=== PATIENT | female | born 1995 | race Caucasian/White ===

== ENCOUNTER → 2017-05-17 | Outpatient (CLI) | payer BC | LOC: PLD 11:02 → LAB SHORT 11:02 | DX: D48.5 Neoplasm of uncertain behavior of skin (principal) | CPT/HCPCS: 88305 ==

== ENCOUNTER 2024-03-21 09:59 | Inpatient (IN) | payer SELFPAY ==
[2024-03-21] VITALS (16 sets, daily range): BP systolic 119–161; BP diastolic 63–115
[~2024-03-21] VITALS: Ht 162.6 cm; Wt 74.3 kg
[~2024-03-21 09:59] MED LIST: ONE-A-DAY PREN1 EAC1 PO
[2024-03-21] MEDS ORDERED: Tranexamic Acid 100 ML IV SCH (10:10)
[2024-03-21] MEDS ORDERED: Methylergonovine Maleate 0.2MG / ML 1ML Amp IM PRN (10:10)
[2024-03-21] MEDS ORDERED: OXYTOCIN/RINGER'S LACTATE 500 ML IV PRN (10:10)
[2024-03-21] MEDS ORDERED: Oxytocin 10 Unit / ML Vial IM PRN (10:10)
[2024-03-21] MEDS ORDERED: Lactated Ringer's 1,000 ML IV PRN (10:10)
[2024-03-21] MEDS ORDERED: Carboprost Tromethamine 250 MCG/ML 1ML Amp IM PRN ×2 (10:10→15:25)
[2024-03-21] MEDS ORDERED: Acetaminophen 500 MG Tab PO PRN (10:10)
[2024-03-21] MEDS ORDERED: Calcium Carbonate 500 MG Tab Chew PO SCH (10:10)
[2024-03-21] MEDS ORDERED: Ondansetron HCl 2 MG / ML 2ML Vial IV PRN (10:10)
[2024-03-21] MEDS ORDERED: Misoprostol 200 MCG Tab BC PRN (10:10)
[2024-03-21] MEDS ORDERED: Misoprostol 200 MCG Tab PR PRN (10:10)
[2024-03-21] MEDS ORDERED: OXYTOCIN/RINGER'S LACTATE 500 ML IV ONE (10:26)
[2024-03-21] MEDS ORDERED: Lactated Ringer's 1,000 ML IV ONE ×2 (10:26→10:28)
[2024-03-21 10:34] LABS: BASOPHILS ABSOLUTE AUTO 0.03 K/mm3 (0.00-0.23); BASOPHILS PERCENT AUTO 0 % (0-2); EOSINOPHILS ABSOLUTE AUTO 0.09 K/mm3 (0.00-0.68); EOSINOPHILS PERCENT AUTO 1 % (0-6); Hemoglobin 13.4 g/dL (11.5-16.0); IMMATURE GRAN ABSOLUTE AUTO 0.06 K/mm3 (0.00-0.10); IMMATURE GRAN PERCENT AUTO 1 % (0-1); LYMPHOCYTES ABSOLUTE AUTO 1.41 K/mm3 (0.84-5.20); LYMPHOCYTES PERCENT AUTO 19 % (21-46); MONOCYTES ABSOLUTE AUTO 0.22 K/mm3 (0.16-1.47); MONOCYTES PERCENT AUTO 3 % (4-13); Mean Corpuscular HGB Conc 34.4 g/dL (31.5-36.5); Mean Corpuscular Volume 84 fL (80-100); Mean Platelet Volume 10.9 fL (9.1-12.4); NEUTROPHILS PERCENT AUTO 76 % (41-73); Platelet Count 211 K/mm3 (150-400); RDW Coefficient Variation 12.2 % (11.7-14.2); RDW Standard Deviation 36.8 fL (35.1-46.3); Red Blood Cell Count 4.62 M/mm3 (3.80-5.20); White Blood Cell Count 7.61 K/mm3 (4.00-11.30)
[2024-03-21] MEDS ORDERED: OxyCODONE 5 mg/Acetamin 325 mg TABLET PO PRN (15:25)
[2024-03-21] MEDS ORDERED: Acetaminophen 325 MG TABLET PO PRN (15:25)
[2024-03-21] MEDS ORDERED: OXYTOCIN/RINGER'S LACTATE 500 ML IV SCH (15:25)
[2024-03-21] MEDS ORDERED: Lanolin Cream TOP PRN (15:25)
[2024-03-21] MEDS ORDERED: Ibuprofen 400 MG Tab PO PRN (15:30)
[2024-03-21] MEDS ORDERED: Misoprostol 100 MCG Tab PO PRN (15:30)
[2024-03-21] MEDS ORDERED: Docusate Sodium 100 MG Cap PO PRN (15:30)
[2024-03-21] MEDS ORDERED: Diphth,Pertuss(Acell),Tet Vac 0.5 ML VIAL IM SCH (15:30)
[2024-03-21] MEDS ORDERED: Ketorolac Tromethamine 30mg Vial IV PRN (15:30)
[2024-03-21] MEDS ORDERED: FLU VACC TS2024-25(6MOS UP)/PF 45 MCG/0.5 ML SYRINGE IM SCH (15:30)
[2024-03-21] MEDS ORDERED: Witch Hazel/Glycerin PADS TOP PRN (15:30)
[2024-03-21] MEDS ORDERED: Lactated Ringer's 1,000 ML IV SCH (15:35)
[2024-03-21] MEDS ORDERED: Benzocaine Topical Anesthetic Spray 60GM TOP PRN (15:35)
[2024-03-22 04:05] VITALS: BP 108/62
[2024-03-22 08:01] VITALS: BP 131/83
[2024-03-22 08:42] LABS: Hematocrit 36.8 % (33.0-51.0); Hemoglobin 12.7 g/dL (11.5-16.0); Mean Corpuscular HGB 29.1 pg (26.0-34.0); Mean Corpuscular HGB Conc 34.5 g/dL (31.5-36.5); Mean Corpuscular Volume 84 fL (80-100); Mean Platelet Volume 10.9 fL (9.1-12.4); Platelet Count 184 K/mm3 (150-400); RDW Coefficient Variation 11.9 % (11.7-14.2); RDW Standard Deviation 36.7 fL (35.1-46.3); Red Blood Cell Count 4.37 M/mm3 (3.80-5.20); White Blood Cell Count 11.75 K/mm3 (4.00-11.30)
[2024-03-22] MEDS ORDERED: Prenatal Vit/FE Fumarate/FA 1 Tab PO SCH (09:00)
[2024-03-22 11:28] VITALS: BP 119/60
[2024-03-22] MEDS ORDERED: IBUP800 PO (13:18)
== END 2024-03-22 15:00 | disposition home or self-care (01) | DRG 807 ==
LOC: BC 09:59 → OBS 09:59 → BC 10:22 → OBS 10:22 → BC 03-22 15:00
PROVIDERS: ADMIT Advanced Practice Midwife
PROC: 10E0XZZ Delivery of Products of Conception, External Approach (ICD-10-PCS; principal; 2024-03-21)
PROC: 0HQ9XZZ Repair Perineum Skin, External Approach (ICD-10-PCS; 2024-03-21)
PROC: 10907ZC Drainage of Amniotic Fluid, Therapeutic from Products of Conception, Via Natural or Artificial Opening (ICD-10-PCS; 2024-03-21)
PROC: 3E033VJ Introduction of Other Hormone into Peripheral Vein, Percutaneous Approach (ICD-10-PCS; 2024-03-21)
DX: O48.0 Post-term pregnancy (principal); Z37.0 Single live birth; Z3A.41 41 weeks gestation of pregnancy; O70.0 First degree perineal laceration during delivery
CPT/HCPCS: 36415; 85025; 85027; 86850; 86900; 86901; A9270; J2590; J7120